=== PATIENT | male | born 1955 | race Caucasian/White ===

== ENCOUNTER 2017-11-08 07:34 | Inpatient (IN) | payer OTHER ==
[~2017-11-08 07:34] MED LIST: LACTATED RINGER'S 1,000 ML IV*; ROCURONIUM 50 MG INJ
[2017-11-08] MEDS ORDERED: MIDAZOLAM 1 MG/ML 2 ML INJ (07:56)
[2017-11-08] MEDS ORDERED: PROPOFOL 20 ML (07:56)
[2017-11-08] MEDS ORDERED: ROCURONIUM 50 MG INJ (07:56)
[2017-11-08] MEDS ORDERED: GLYCOPYRROLATE 0.4 MG INJ (07:56)
[2017-11-08] MEDS ORDERED: NEOSTIGMINE 3 MG/3 ML SYRINGE (07:56)
[2017-11-08] MEDS ORDERED: ONDANSETRON 4 MG INJ (07:56)
[2017-11-08] MEDS ORDERED: CEFAZOLIN 1 GM INJ ×2 (07:56→13:39)
[2017-11-08] MEDS ORDERED: DEXAMETHASONE 4 MG/ML 1 ML INJ (07:56)
[2017-11-08] MEDS ORDERED: SUGAMMADEX SODIUM 200 MG/2 ML VIAL IV ×3 (08:38→17:04)
[2017-11-08] MEDS ORDERED: NALOXONE (0.4 MG/ML) INJ IV (09:00)
[2017-11-08] MEDS ORDERED: DIPHENHYDRAMINE 50 MG INJ IV ×3 (09:00→16:30)
[2017-11-08] MEDS ORDERED: BISACODYL 10 MG SUPP PR (09:00)
[2017-11-08] MEDS ORDERED: ZOLPIDEM 5 MG TAB PO (09:00)
[2017-11-08] MEDS: DOCUSATE SODIUM 100 MG CAP PO ×2 (09:00→21:22)
[2017-11-08] MEDS ORDERED: HYDROmorphONE 0.5 MG/0.5 ML SYG IV (09:00)
[2017-11-08] MEDS ORDERED: POLYMYXIN/BACITRACIN 1L IRRIG (09:22)
[2017-11-08] MEDS ORDERED: LABETALOL HCL 20MG INJ IV ×2 (10:00→16:30)
[2017-11-08] MEDS ORDERED: ALBUTEROL 0.083% (NEB) 2.5 MG/3 ML AMP HHN ×2 (10:00→16:30)
[2017-11-08] MEDS ORDERED: EPHEDrine SULFATE 50 MG/5 ML SYG IV ×2 (10:00→16:30)
[2017-11-08] MEDS ORDERED: hydrALAzine 20 MG INJ IV ×2 (10:00→16:30)
[2017-11-08] MEDS ORDERED: ONDANSETRON 4 MG INJ IV (10:00)
[2017-11-08] MEDS ORDERED: IPRATROPIUM (NEB) 0.5 MG/2.5 ML AMP HHN ×2 (10:00→16:30)
[2017-11-08] MEDS ORDERED: OXYCODONE/ACETAMINOPHEN (5/325) TAB PO ×4 (10:00→16:30)
[2017-11-08] MEDS ORDERED: MEPERIDINE 25 MG INJ IV ×2 (10:00→16:30)
[2017-11-08] MEDS ORDERED: TRIMETHOBENZAMIDE 100 MG/ML VIAL IM ×2 (10:00→16:30)
[2017-11-08] MEDS ORDERED: HYDROmorphONE (0.2 MG/ML) 10ML SYG IV ×6 (10:00→16:30)
[2017-11-08] MEDS ORDERED: FENTAnyl 50 MCG/ML VIAL IV ×6 (10:00→16:30)
[2017-11-08] MEDS ORDERED: MIDAZOLAM 1 MG/ML 2 ML INJ IV ×2 (10:00→16:30)
[2017-11-08] MEDS: CEFAZOLIN 2 GM/50 ML (PMX) 50 ML IVPB (10:01)
[2017-11-08] MEDS ORDERED: FENTAnyl 50 MCG/ML VIAL (11:25)
[2017-11-08] MEDS ORDERED: PHENYLephrine (100 MCG/ML) 5ML SYG (13:02)
[2017-11-08] MEDS: CEFAZOLIN 1 GM INJ (13:04)
[2017-11-08] MEDS: SURGIFOAM POWDER 1 GM KIT ×2 (13:04→13:05)
[2017-11-08] MEDS: CA CHLORIDE 10% 10 ML SYRINGE (13:04)
[2017-11-08] MEDS: HEPARIN 1000 UNITS/ML 10 ML INJ ×2 (13:05)
[2017-11-08] MEDS: THROMBIN 5000 UNIT VIAL (13:06)
[2017-11-08] MEDS: CEFAZOLIN 1 GM/50 ML (PMX) 50 ML IVPB ×2 (14:01→19:40)
[2017-11-08] MEDS: BUPIVACAINE 0.5%/EPI (SDV) 30 ML INJ INJ (17:05)
[2017-11-08] MEDS: HYDROmorphONE 0.2 MG/ML PCA IV (17:25)
[2017-11-08] MEDS: ONDANSETRON 4 MG INJ IV ×2 (18:03→23:21)
[2017-11-08] MEDS: D5W-0.45 NACL + KCL 20 MEQ 1,000 ML IV ×2 (18:54→19:36)
[2017-11-08] MEDS ORDERED: PREDNISOLONE ACET 0.12% 5 ML OPH BOTH EYES (19:30)
[2017-11-08] MEDS: GABAPENTIN 300 MG CAP PO (21:22)
[2017-11-08] MEDS: SULFASALAZINE 500 MG TAB PO (22:30)
[2017-11-08] MEDS: CEPASTAT LOZENGE MT (22:35)
[2017-11-09] MEDS: HYDROmorphONE 0.2 MG/ML PCA IV ×3 (00:14→22:25)
[2017-11-09] MEDS: CEFAZOLIN 1 GM/50 ML (PMX) 50 ML IVPB ×3 (03:23→13:45)
[2017-11-09] MEDS: D5W-0.45 NACL + KCL 20 MEQ 1,000 ML IV (04:54)
[2017-11-09 05:13] LABS: ADD MAN DIFF? NO
[2017-11-09 05:18] LABS: ABNORMAL IP MESSAGE 1; BASOPHILS % 0.1 % (0.0-2.0); HEMATOCRIT 39.8 % (42.0-52.0); HEMOGLOBIN 13.5 g/dl (14.0-18.0); LYMPHOCYTES # 0.3 10^3/ul (0.8-2.9); LYMPHOCYTES % 2.8 % (15.0-51.0); MEAN CORPUSCULAR HGB CONC 33.9 g/dl (32.0-37.0); MEAN CORPUSCULAR VOLUME 100.3 fl (82.0-101.0); MEAN PLATELET VOLUME 10.1 fl (7.4-10.4); MONOCYTE # 0.8 10^3/ul (0.3-0.9); MONOCYTES % 7.4 % (0.0-11.0); NEUTROPHIL # 10.1 10^3/ul (1.6-7.5); NEUTROPHILS % 89.1 % (39.0-77.0); PLATELET COUNT 176 10^3/UL (140-415); POSITIVE DIFF @See below; RED BLOOD COUNT 3.97 10^6/ul (4.70-6.10)
[2017-11-09 05:18] LABS: WHITE BLOOD COUNT 11.3 10^3/ul (4.8-10.8)
[2017-11-09 05:36] LABS: ANION GAP 13 (8-16); BLOOD UREA NITROGEN 12 mg/dl (7-20); CALCIUM 8.4 mg/dl (8.4-10.2); CARBON DIOXIDE 29 mmol/L (21-31); CHLORIDE 104 mmol/L (97-110); CREATININE 0.82 mg/dl (0.61-1.24); GLUCOSE 143 mg/dl (70-220); MAGNESIUM 1.9 mg/dl (1.7-2.5); POTASSIUM 5.2 mmol/L (3.5-5.1); SODIUM 141 mmol/L (135-144)
[2017-11-09] MEDS: PANTOPRAZOLE 40 MG INJ IV (06:28)
[2017-11-09] MEDS ORDERED: GABAPENTIN 300 MG CAP PO (09:00)
[2017-11-09] MEDS: ONDANSETRON 4 MG INJ IV (09:22)
[2017-11-09] MEDS: DOCUSATE SODIUM 100 MG CAP PO ×2 (09:22→20:32)
[2017-11-09] MEDS: SULFASALAZINE 500 MG TAB PO ×2 (09:22→20:32)
[2017-11-09] MEDS: SOD CHLORIDE 0.45% 1,000 ML IV ×2 (09:23→22:26)
[2017-11-09] MEDS: CYCLOBENZAPRINE 10 MG TAB PO (18:28)
[2017-11-09] MEDS: CEPASTAT LOZENGE MT (18:34)
[2017-11-09] MEDS: HORIZANT 600 MG PO (20:32)
[2017-11-10 05:32] LABS: ADD MAN DIFF? NO
[2017-11-10 05:36] LABS: BASOPHILS % 0.3 % (0.0-2.0); EOSINOPHILS # 0.1 10^3/ul (0.0-0.5); EOSINOPHILS % 0.9 % (0.0-7.0); HEMATOCRIT 34.7 % (42.0-52.0); HEMOGLOBIN 11.6 g/dl (14.0-18.0); LYMPHOCYTES # 0.7 10^3/ul (0.8-2.9); LYMPHOCYTES % 8.1 % (15.0-51.0); MEAN CORPUSCULAR HEMOGLOBIN 33.7 pg (29.0-33.0); MEAN CORPUSCULAR HGB CONC 33.4 g/dl (32.0-37.0); MEAN CORPUSCULAR VOLUME 100.9 fl (82.0-101.0); MEAN PLATELET VOLUME 9.7 fl (7.4-10.4); MONOCYTES % 11.4 % (0.0-11.0); NEUTROPHIL # 7.1 10^3/ul (1.6-7.5); NEUTROPHILS % 78.7 % (39.0-77.0); PLATELET COUNT 150 10^3/UL (140-415); RED BLOOD COUNT 3.44 10^6/ul (4.70-6.10); RED CELL DISTRIBUTION WIDTH 12.3 % (11.5-14.5)
[2017-11-10 05:57] LABS: ANION GAP 6 (8-16); BLOOD UREA NITROGEN 11 mg/dl (7-20); CARBON DIOXIDE 32 mmol/L (21-31); CHLORIDE 105 mmol/L (97-110); CREATININE 0.81 mg/dl (0.61-1.24); GLUCOSE 108 mg/dl (70-220); MAGNESIUM 1.9 mg/dl (1.7-2.5); SODIUM 139 mmol/L (135-144)
[2017-11-10] MEDS: PANTOPRAZOLE 40 MG INJ IV (06:31)
[2017-11-10] MEDS: DOCUSATE SODIUM 100 MG CAP PO ×2 (08:59→21:32)
[2017-11-10] MEDS: SULFASALAZINE 500 MG TAB PO ×2 (08:59→21:32)
[2017-11-10] MEDS: CYCLOBENZAPRINE 10 MG TAB PO ×2 (09:00→18:05)
[2017-11-10] MEDS ORDERED: HYDROCODONE/APAP (10/325) TAB PO (10:00)
[2017-11-10] MEDS: HYDROCODONE/APAP (10/325) TAB PO ×4 (10:10→21:55)
[2017-11-10] MEDS: AL HYDROX/MG HYDROX/SIMETH 30 ML CUP PO (10:10)
[2017-11-10] MEDS: ONDANSETRON 4 MG INJ IV ×2 (10:12→18:04)
[2017-11-10] MEDS: SOD CHLORIDE 0.45% 1,000 ML IV (11:40)
[2017-11-10] MEDS: ACETAMINOPHEN 325 MG TAB PO (12:29)
[2017-11-10] MEDS: HORIZANT 600 MG PO (21:33)
[2017-11-11] MEDS: SOD CHLORIDE 0.45% 1,000 ML IV ×2 (01:00→13:11)
[2017-11-11] MEDS: CYCLOBENZAPRINE 10 MG TAB PO ×2 (01:05→07:52)
[2017-11-11] MEDS: HYDROCODONE/APAP (10/325) TAB PO ×3 (03:23→13:39)
[2017-11-11 06:30] LABS: ADD MAN DIFF? NO
[2017-11-11 06:31] LABS: WHITE BLOOD COUNT 7.7 10^3/ul (4.8-10.8)
[2017-11-11 06:31] LABS: BASOPHILS % 0.3 % (0.0-2.0); EOSINOPHILS # 0.2 10^3/ul (0.0-0.5); EOSINOPHILS % 2.2 % (0.0-7.0); HEMATOCRIT 36.3 % (42.0-52.0); HEMOGLOBIN 12.2 g/dl (14.0-18.0); LYMPHOCYTES # 0.9 10^3/ul (0.8-2.9); LYMPHOCYTES % 12.1 % (15.0-51.0); MEAN CORPUSCULAR HGB CONC 33.6 g/dl (32.0-37.0); MEAN CORPUSCULAR VOLUME 101.1 fl (82.0-101.0); MONOCYTE # 0.9 10^3/ul (0.3-0.9); MONOCYTES % 11.4 % (0.0-11.0); NEUTROPHIL # 5.7 10^3/ul (1.6-7.5); NEUTROPHILS % 73.6 % (39.0-77.0); PLATELET COUNT 160 10^3/UL (140-415); RED BLOOD COUNT 3.59 10^6/ul (4.70-6.10); RED CELL DISTRIBUTION WIDTH 12.1 % (11.5-14.5)
[2017-11-11] MEDS: PANTOPRAZOLE 40 MG INJ IV (06:50)
[2017-11-11 07:00] LABS: ANION GAP 10 (8-16); BLOOD UREA NITROGEN 9 mg/dl (7-20); CALCIUM 8.4 mg/dl (8.4-10.2); CARBON DIOXIDE 33 mmol/L (21-31); CHLORIDE 103 mmol/L (97-110); CREATININE 0.88 mg/dl (0.61-1.24); GLUCOSE 92 mg/dl (70-220); MAGNESIUM 2.3 mg/dl (1.7-2.5); POTASSIUM 4.1 mmol/L (3.5-5.1); SODIUM 142 mmol/L (135-144)
[2017-11-11] MEDS: SULFASALAZINE 500 MG TAB PO (07:52)
[2017-11-11] MEDS: DOCUSATE SODIUM 100 MG CAP PO (07:52)
[2017-11-11] MEDS: ONDANSETRON 4 MG INJ IV (07:53)
== END 2017-11-11 15:17 | disposition home or self-care (01) | DRG 454 ==
LOC: REC 07:34 → MS1 18:15
PROC: 0SG00A0 Fusion of Lumbar Vertebral Joint with Interbody Fusion Device, Anterior Approach, Anterior Column, Open Approach (ICD-10-PCS; principal; 2017-11-08 09:30)
PROC: 0SG1071 Fusion of 2 or more Lumbar Vertebral Joints with Autologous Tissue Substitute, Posterior Approach, Posterior Column, Open Approach (ICD-10-PCS; 2017-11-08 09:30)
PROC: 0SG10A0 Fusion of 2 or more Lumbar Vertebral Joints with Interbody Fusion Device, Anterior Approach, Anterior Column, Open Approach (ICD-10-PCS; 2017-11-08 09:30)
PROC: 0SG1071 Fusion of 2 or more Lumbar Vertebral Joints with Autologous Tissue Substitute, Posterior Approach, Posterior Column, Open Approach (ICD-10-PCS; 2017-11-08 09:30)
PROC: 0ST20ZZ Resection of Lumbar Vertebral Disc, Open Approach (ICD-10-PCS; 2017-11-08 09:30)
PROC: 07DR3ZZ Extraction of Iliac Bone Marrow, Percutaneous Approach (ICD-10-PCS; 2017-11-08 09:30)
PROC: 30253H0 (ICD-10-PCS; 2017-11-08 09:30)
DX: M96.0 Pseudarthrosis after fusion or arthrodesis (principal); M02.38 Reiter's disease, vertebrae; M51.16 Intervertebral disc disorders with radiculopathy, lumbar region; M48.061 Spinal stenosis, lumbar region without neurogenic claudication
CPT/HCPCS: 72114; 80048; 83735; 85025; 86850; 86900; 86901; 86999; 87086; 97116; 97161; 97530